=== PATIENT | male | born 1965 ===

== ENCOUNTER → 2020-10-08 | Outpatient (CLI) | payer SELFPAY ==
[~2020-10-08] MED LIST: COVID-19 VACCINE (PFIZER)/PF 30 MCG/0.3 ML VIAL IM ONE; EPINEPHRINE INJ/PF 1 MG/1 ML AMPULE IM PRN
--- OUTSIDE RECORDS SUMMARY | 2020-10-11 10:31 | XMS REPORT ---
:1965 Author Organization [facility] Address [facility] [address] [place] [address] Care Team Providers Name Role Phone Unavailable Unavailable Unavailable Allergies, Adverse Reactions, Alerts This patient has no known allergies or adverse reactions. Medications Ordered Filled Start Stop Current Ordering Indication Dosage Frequency Signature Comments Components Medication Medication Date Date Medication? Clinician (SIG) Name Name lisinopril Yes 20MG Take 20 mg Keny e 20 (PRINIVIL,Z 3-20 by mouth mg by ESTRIL) 20 12:52: daily. mouth MG tablet 08 daily. atorvastati Yes 10MG Take 10 mg Ta ke 10 n (LIPITOR) 3-20 by mouth mg by 10 MG 12:52: daily. mouth tablet 08 daily. atorvastati 2016-0 Yes 10MG Take 10 mg Ta ke 10 n (LIPITOR) 3-20 by mouth mg by 10 MG 12:52: daily. mouth tablet 08 daily. lisinopril Yes 20MG Take 20 mg Keny e 20 (PRINIVIL,Z 3-20 by mouth mg by ESTRIL) 20 12:52: daily. mouth MG tablet 08 daily. metFORMIN Yes 500MG Take 500 Take 5 00 (GLUCOPHAGE 3-20 mg by mg by ) 500 MG 12:52: mouth 2 mouth 2 tablet 08 (two) (two) times a times a day with day with meals. meals. metFORMIN 2016-0 Yes 500MG Take 500 Take 5 00 (GLUCOPHAGE 3-20 mg by mg by ) 500 MG 12:52: mouth 2 mouth 2 tablet 08 (two) (two) times a times a day with day with meals. meals. fluticasone 2015-0 Yes 1{spray 1 spray by 1 spray (FLONASE) 3-20 } Each Nare by Eac h 50 00:00: route Nare mcg/actuati 00 daily. route on nasal daily. spray predniSONE 2015-0 Yes 60mg PO 60mg P O (DELTASONE) 3-20 day 1, day 1, 10 MG 00:00: 50mg PO 50mg PO tablet 00 day 2, day 2, 40mg PO 40mg PO day 3, day 3, 30mg PO 30mg PO day 4, day 4, 20mg PO 20mg PO day 5, day 5, 10mg PO 10mg PO day 6 day 6 predniSONE Yes 60mg PO 60mg P O (DELTASONE) 3-20 day 1, day 1, 10 MG 00:00: 50mg PO 50mg PO tablet 00 day 2, day 2, 40mg PO 40mg PO day 3, day 3, 30mg PO 30mg PO day 4, day 4, 20mg PO 20mg PO day 5, day 5, 10mg PO 10mg PO day 6 day 6 fluticasone Yes 1{spray 1 spray by 1 spray (FLONASE) 3-20 } Each Nare by Eac h 50 00:00: route Nare mcg/actuati 00 daily. route on nasal daily. spray amoxicillin 2015- No 1{tbl} Take 1 Take 1 -clavulanat 3-20 03-30 tablet by tabl et by e 00:00: 23:59 mouth Two mouth Two (AUGMENTIN) 00 :00 (2) times (2) times 875-125 mg a day. for a da y. per tablet 10 days for 10 days amoxicillin 2015- No 1{tbl} Take 1 Take 1 -clavulanat 3-20 03-30 tablet by tabl et by e 00:00: 23:59 mouth Two mouth Two (AUGMENTIN) 00 :00 (2) times (2) times 875-125 mg a day. for a da y. per tablet 10 days for 10 days Problems This patient has no known problems. Procedures This patient has no known procedures. Results Test Description Test Time Test Comments Text Results Atomic Results Result Comments SARS-CoV-2 RNA Nose Ql GABE+probe 2020-09-16 00:00:00 Test Item Value Reference Range Comments SARS-CoV-2 RNA Nose Ql GABE+probe Detected [place] [facility] Case ID: (test code = [id number]) [id number] SARS-CoV-2 RNA Nose Ql [id number] 00:00:00 Test Item Value Reference Range Comments SARS-CoV-2 RNA Nose Ql Not detected [place] [facility] Case GABE+probe (test code = ID: [id number]) Encounters Start End Encounter Admission Attending Care Care Encounter ID Date/Time Date/Time Type Type Clinicians Facility Department 2015-12-04 2015-12-04 [facility] [id number] 13:36:02 14:16:00 Social History Social Habit Start Date Stop Date Comments ASSERTION 2015-12-04 00:00:00 2015-12-04 00:00:00 Vital Signs Vital Name Observation Time Observation Value Comments SYSTOLIC BLOOD PRESSURE 2015-12-04 12:53:00 122 mm[Hg] DIASTOLIC BLOOD PRESSURE 2015-12-04 12:53:00 75 mm[Hg] HEART RATE 2015-12-04 12:53:00 97 /min BODY TEMPERATURE 2015-12-04 12:53:00 37.06 Joann RESPIRATORY RATE 2015-12-04 12:53:00 20 /min HEIGHT 2015-12-04 12:53:00 165.1 cm WEIGHT 2015-12-04 12:53:00 90.175 kg OXYGEN SATURATION 2015-12-04 12:53:00 97 %
== END ==
LOC: EMPHEALTH 16:11
PROVIDERS: ATTEND Internal Medicine
DX: Z23 Encounter for immunization (principal)
CPT/HCPCS: 91300